=== PATIENT | female | born 1985 | race Caucasian/White ===

== ENCOUNTER 2022-08-16 07:40 | Day surgery (SDC) | payer OTHER ==
[2022-08-12 14:45] VITALS: BMI 34.2
[2022-08-16] MEDS ORDERED: SODIUM CHLORIDE 0.9% 500 ML 500 ML IV ONE (08:03)
[2022-08-16 08:12] VITALS: RESP 16; TEMP 98.3
[2022-08-16] MEDS ORDERED: fentaNYL (PF) 50 MCG/ML 2 ML AMP ONE (08:42)
[2022-08-16] MEDS: BENZOCAINE SPRAY 1 CAN TOPICAL ONE ×2 (08:56→09:08)
[2022-08-16] MEDS ORDERED: fentaNYL (PF) 50 MCG/ML 2 ML AMP IV ONE (09:08)
[2022-08-16] MEDS: MIDAZOLAM 2 MG/2 ML VIAL IV ONE ×2 (09:08→09:11)
[2022-08-16 12:39] VITALS: BP 133/58; PULSE 72
--- NOTE | 2022-08-16 23:05 | ECHOT ---
TRANSESOPHAGEAL ECHOCARDIOGRAM INDICATION: Subaortic membrane. PROCEDURE NOTE: After obtaining informed consent, transesophageal echocardiogram was performed in left lateral position using an Omniplane probe. Local and IV sedation were obtained using 2 mg of Versed and 25 mcg of fentanyl. The patient tolerated the procedure well without any obvious immediate complications. Total sedation time was 10 minutes. FINDINGS: 1. There is a subaortic membrane noted within the left ventricular outflow tract without any evidence of regurgitation. Aortic valve appears normal. There is no evidence of aortic stenosis or regurgitation. 2. Aortic root measures normally. Left atrium has normal size. Left ventricle has normal size and systolic function. Right atrium appears mildly enlarged. Right ventricle appears normal. Color Doppler evaluation showed mild mitral and tricuspid regurgitation. CONCLUSION: Subaortic membrane noted without any evidence of regurgitation. PLAN: The patient will undergo a stress test and follow up with me after that. JALEN / RESHMA: [id number] /
== END 2022-08-16 10:37 | disposition home or self-care (01) ==
LOC: CATHCVL 07:40
PROVIDERS: ATTEND Internal Medicine Cardiovascular Disease
DX: Q24.4 Congenital subaortic stenosis (principal); I08.1 Rheumatic disorders of both mitral and tricuspid valves; I10 Essential (primary) hypertension; F41.9 Anxiety disorder, unspecified; F32.A Depression, unspecified; Z82.49 Family history of ischemic heart disease and other diseases of the circulatory system; F17.210 Nicotine dependence, cigarettes, uncomplicated; Z88.0 Allergy status to penicillin; Z88.8 Allergy status to other drugs, medicaments and biological substances; Z79.899 Other long term (current) drug therapy
CPT/HCPCS: 93312; 93320; 93325; 99152; 81025; J2250; J3010

== ENCOUNTER 2022-08-23 20:00 | Inpatient (IN) | payer OTHER, MEDICAID ==
--- NOTE | 2022-08-23 20:21 | ED ---
Overdose HPI - General Source: patient, EMS, RN notes reviewed Mode of arrival: EMS - History of Present Illness MD Complaint: intentional overdose <Robin Bhandari - Last Filed: 08/23/22 20:46> <Robin Beth - Last Filed: 08/23/22 21:39> <Mohamud Wood - Last Filed: 08/24/22 16:40> - General Chief Complaint: Overdose Stated Complaint: Overdose Time Seen by Provider: 08/23/22 20:00 - History of Present Illness Initial Comments: 37-year-old female with a benign past medical history who apparently took multiple medications tonight including alcohol. She per report was unresponsive was given nasal Narcan after which she woke up over the lining cleaner states they could not find a narcotic that she took. Patient arrives awake alert oriented 4 somewhat evasive with questioning why she did what she did this evening. She denies any fevers chills nausea vomiting sweats. No other current complaints or modifying factors (Robin Bhandari) - Related Data Home Medications Medication Instructions Recorded Confirmed FLUoxetine HCL 20 mg PO DAILY 08/12/22 08/23/22 Metoprolol Tartrate 25 mg PO BID 08/12/22 08/23/22 Mirtazapine 30 mg PO HS 08/12/22 08/23/22 busPIRone HCL 15 mg PO BID 08/12/22 08/23/22 hydrOXYzine pamoate [Vistaril] 25 mg PO BID 08/23/22 08/23/22 Allergies Allergy/AdvReac Type Severity Reaction Status Date / Time amoxicillin Allergy Anaphylaxis Verified 08/23/22 21:32 Penicillins Allergy Anaphylaxis Verified 08/23/22 21:32 Review of Systems ROS Other: All systems not noted in ROS Statement are negative. <Robin Bhandari - Last Filed: 08/23/22 20:46> ROS Other: All systems not noted in ROS Statement are negative. <Robin Beth - Last Filed: 08/23/22 21:39> ROS Other: All systems not noted in ROS Statement are negative. <Mohamud Wood - Last Filed: 08/24/22 16:40> ROS Statement: Those systems with pertinent positive or pertinent negative responses have been documented in the HPI. Past Medical History Past Medical History: No Reported History Additional Past Medical History / Comment(s): Heart Murmur. History of Any Multi-Drug Resistant Organisms: None Reported Past Surgical History: Section Additional Past Surgical History / Comment(s): Section X5. Past Anesthesia/Blood Transfusion Reactions: No Reported Reaction Past Psychological History: Anxiety Smoking Status: Vaper Past Alcohol Use History: Abuse Past Drug Use History: None Reported - Past Family History Mother Family Medical History: No Reported History <Robin Bhandari Filed: 08/23/22 20:46> General Exam General appearance: alert, in no apparent distress Head exam: Present: atraumatic, normocephalic, normal inspection Eye exam: Present: normal appearance, PERRL, EOMI. Absent: scleral icterus, conjunctival injection, periorbital swelling ENT exam: Present: normal exam, mucous membranes moist Neck exam: Present: normal inspection, full ROM, other (No Tuesday or bruits). Absent: tenderness, meningismus, lymphadenopathy Respiratory exam: Present: normal lung sounds bilaterally. Absent: respiratory distress, wheezes, rales, rhonchi, stridor Cardiovascular Exam: Present: regular rate, normal rhythm, normal heart sounds. Absent: systolic murmur, diastolic murmur, rubs, gallop, clicks GI/Abdominal exam: Present: soft, normal bowel sounds. Absent: distended, tenderness, guarding, rebound, rigid Extremities exam: Present: normal inspection, full ROM, normal capillary refill. Absent: tenderness, pedal edema, joint swelling, calf tenderness Back exam: Present: normal inspection Neurological exam: Present: alert, oriented X3, CN II-XII intact Psychiatric exam: Present: flat affect Skin exam: Present: warm, dry, intact, normal color. Absent: rash <Robin Bhandari Filed: 08/23/22 20:46> General appearance: alert, in no apparent distress Head exam: Present: atraumatic, normocephalic, normal inspection Eye exam: Present: normal appearance, PERRL, EOMI. Absent: scleral icterus, conjunctival injection, periorbital swelling ENT exam: Present: normal exam, mucous membranes moist Neck exam: Present: normal inspection. Absent: tenderness, meningismus, lymphadenopathy Respiratory exam: Present: normal lung sounds bilaterally. Absent: respiratory distress, wheezes, rales, rhonchi, stridor Cardiovascular Exam: Present: regular rate, normal rhythm, normal heart sounds. Absent: systolic murmur, diastolic murmur, rubs, gallop, clicks GI/Abdominal exam: Present: soft, normal bowel sounds. Absent: distended, tenderness, guarding, rebound, rigid Extremities exam: Present: normal inspection, full ROM, normal capillary refill. Absent: tenderness, pedal edema, joint swelling, calf tenderness Back exam: Present: normal inspection Neurological exam: Present: alert, oriented X3, CN II-XII intact Psychiatric exam: Present: normal affect, normal mood Skin exam: Present: warm, dry, intact, normal color. Absent: rash <Mohamud Wood - Last Filed: 08/24/22 16:40> - General Exam Comments Initial Comments: This is a well up well-nourished awake alert oriented 4 female (Robin Bhandari) Course <Robin Bhandari - Last Filed: 08/23/22 20:46> <Robin Beth - Last Filed: 08/23/22 21:39> Vital Signs 08/23/22 20:03 Temperature 97.6 F Pulse Rate 70 Respiratory 18 Rate Blood Pressure 146/98 O2 Sat by Pulse 99 Oximetry - Reevaluation(s) Reevaluation #1: 08/23/22 20:46 The patient will be endorsed to Dr. Beth at our shift change at 9 PM (Rboin Bhandari) Reevaluation #2: 08/23/22 21:39 EKG sinus rhythm rate of 72, MO interval 164, QRS duration 92, QTC 433, no ST segment elevation. (Robin Beth) Medical Decision Making <Robin Bhandari - Last Filed: 08/23/22 20:46> - Lab Data Result diagrams: 08/23/22 20:56 <Robin Beth - Last Filed: 08/23/22 21:39> - Lab Data Result diagrams: 08/23/22 20:56 08/23/22 20:56 <Mohamud Wood - Last Filed: 08/24/22 16:40> - Medical Decision Making Was pt. sent in by a medical professional or institution (, PA, MACHINE DESIGNER, urgent care, hospital, or fci...) When possible be specific @ -[No] Did you speak to anyone other than the patient for history (EMS, parent, family, police, friend...)? What history was obtained from this source @ -[Paramedics upon arrival] Did you review nursing and triage notes (agree or disagree)? Why? @ -[I reviewed and agree with nursing and triage notes] Were old charts reviewed (outside hosp., previous admission, EMS record, old EKG, old radiological studies, urgent care reports/EKG's, fci records)? Report findings @ -[No old charts were reviewed] Differential Diagnosis (chest pain, altered mental status, abdominal pain women, abdominal pain men, vaginal bleeding, weakness, fever, dyspnea, syncope, headache, dizziness, GI bleed, back pain, seizure, CVA, palpatations, mental health, musculoskeletal)? @ -[Multiple drug overdose, alcohol ingestion] EKG interpreted by me (3pts min.). @ -[As above] X-rays interpreted by me (1pt min.). @ -[None done] CT interpreted by me (1pt min.). @ -[None done] U/S interpreted by me (1pt. min.). @ -[None done] What testing was considered but not performed or refused? (CT, X-rays, U/S, labs)? Why? @ -[None] What meds were considered but not given or refused? Why? @ -[None] Did you discuss the management of the patient with other professionals ([place]. , PA, MACHINE DESIGNER, lab, RT, psych nurse, social work supervisor, steam room attendant, teacher, disability insurance hearing officer, caseworker)? Give summary @ -[No] Was smoking cessation discussed for >3mins.? @ -[No] Was critical care preformed (if so, how long)? @ -[No] Were there social determinants of health that impacted care today? How? (Homelessness, low income, unemployed, alcoholism, drug addiction, transport ation, low edu. Level, literacy, decrease access to med. care, retirement, rehab)? @ -[No] Was there de-escalation of care discussed even if they declined (Discuss DNR or withdrawal of care, Hospice)? DNR status @ -[No] What co-morbidities impacted this encounter? (DM, HTN, Smoking, COPD, CAD, Cancer, CVA, ARF, Chemo, Hep., AIDS, mental health diagnosis, sleep apnea, morbid obesity)? @ -[None] Was patient admitted / discharged? Hospital course, mention meds given and route, prescriptions, significant lab abnormalities, going to OR and other pertinent info. @ -[hospital course] Undiagnosed new problem with uncertain prognosis? @ -[No] Drug Therapy requiring intensive monitoring for toxicity (Heparin, Nitro, Insulin, Cardizem)? @ -[No] Were any procedures done? @ -[No] Diagnosis/symptom? @ -[default] Acute, or Chronic, or Acute on Chronic? @ -[default] Uncomplicated (without systemic symptoms) or Complicated (systemic symptoms)? @ -[default] Side effects of treatment? @ -[No] Exacerbation, Progression, or Severe Exacerbation? @ -[No] Poses a threat to life or bodily function? How? (Chest pain, [place], [place], pneumonia, PE, COPD, DKA, ARF, appy, cholecystitis, CVA, Diverticulitis, Homicidal, Suicidal, threat to staff... and all critical care pts) @ -[No] (Robin Bhandari) 37 female medical clear for psychiatric evaluation seen and evaluated by psychiatry here in the ER and will be admitted for psychiatric evaluation and treatment (Mohamud Wood) - Lab Data Lab Results 08/23/22 08/23/22 08/23/22 Range/Units 20:56 20:56 20:56 WBC 8.5 (3.8-10.6) k/uL RBC 3.88 (3.80-5.40) m/uL Hgb 12.6 (11.4-16.0) gm/dL Hct 36.8 (34.0-46.0) % MCV 95.0 (80.0-100.0) fL MCH 32.6 (25.0-35.0) pg MCHC 34.3 (31.0-37.0) g/dL RDW 12.6 (11.5-15.5) % Plt Count 251 (150-450) k/uL MPV 10.3 Neutrophils % 49 % Lymphocytes % 40 % Monocytes % 4 % Eosinophils % 2 % Basophils % 0 % Neutrophils # 4.2 (1.3-7.7) k/uL Lymphocytes # 3.4 (1.0-4.8) k/uL Monocytes # 0.3 (0-1.0) k/uL Eosinophils # 0.2 (0-0.7) k/uL Basophils # 0.0 (0-0.2) k/uL PT 10.6 (9.0-12.0) sec INR 1.0 (<1.2) Sodium 141 (137-145) mmol/L Potassium 4.2 (3.5-5.1) mmol/L Chloride 108 H (98-107) mmol/L Carbon Dioxide 21 L (22-30) mmol/L Anion Gap 12 mmol/L BUN 7 (7-17) mg/dL Creatinine 0.42 L (0.52-1.04) mg/dL Est GFR (CKD-EPI)AfAm >90 (>60 ml/min/1.73 sqM) Est GFR (CKD-EPI)NonAf >90 (>60 ml/min/1.73 sqM) Glucose 119 H (74-99) mg/dL Plasma Lactic Acid Syed (0.7-2.0) mmol/L Calcium 9.0 (8.4-10.2) mg/dL Total Bilirubin 0.3 (0.2-1.3) mg/dL AST 40 H (14-36) U/L ALT 33 (4-34) U/L Alkaline Phosphatase 102 (38-126) U/L Creatine Kinase 105 (30-135) U/L Total Protein 8.4 H (6.3-8.2) g/dL Albumin 4.6 (3.5-5.0) g/dL Lipase 127 (23-300) U/L Urine HCG, Qual (Not Detectd) Salicylates <1.0 mg/dL Urine Opiates Screen (NotDetected) Ur Oxycodone Screen (NotDetected) Urine Methadone Screen (NotDetected) Ur Propoxyphene Screen (NotDetected) Acetaminophen <10.0 ug/mL Ur Barbiturates Screen (NotDetected) U Tricyclic Antidepress (NotDetected) Ur Phencyclidine Scrn (NotDetected) Ur Amphetamines Screen (NotDetected) U Methamphetamines Scrn (NotDetected) U Benzodiazepines Scrn (NotDetected) Urine Cocaine Screen (NotDetected) U Marijuana (THC) Screen (NotDetected) Serum Alcohol 249 H* mg/dL Coronavirus (PCR) (Not Detectd) 08/23/22 08/24/22 08/24/22 Range/Units 20:56 09:42 09:42 WBC (3.8-10.6) k/uL RBC (3.80-5.40) m/uL Hgb (11.4-16.0) gm/dL Hct (34.0-46.0) % MCV (80.0-100.0) fL MCH (25.0-35.0) pg MCHC (31.0-37.0) g/dL RDW (11.5-15.5) % Plt Count (150-450) k/uL MPV Neutrophils % % Lymphocytes % % Monocytes % % Eosinophils % % Basophils % % Neutrophils # (1.3-7.7) k/uL Lymphocytes # (1.0-4.8) k/uL Monocytes # (0-1.0) k/uL Eosinophils # (0-0.7) k/uL Basophils # (0-0.2) k/uL PT (9.0-12.0) sec INR (<1.2) Sodium (137-145) mmol/L Potassium (3.5-5.1) mmol/L Chloride (98-107) mmol/L Carbon Dioxide (22-30) mmol/L Anion Gap mmol/L BUN (7-17) mg/dL Creatinine (0.52-1.04) mg/dL Est GFR (CKD-EPI)AfAm (>60 ml/min/1.73 sqM) Est GFR (CKD-EPI)NonAf (>60 ml/min/1.73 sqM) Glucose (74-99) mg/dL Plasma Lactic Acid Syed 1.3 (0.7-2.0) mmol/L Calcium (8.4-10.2) mg/dL Total Bilirubin (0.2-1.3) mg/dL AST (14-36) U/L ALT (4-34) U/L Alkaline Phosphatase (38-126) U/L Creatine Kinase (30-135) U/L Total Protein (6.3-8.2) g/dL Albumin (3.5-5.0) g/dL Lipase (23-300) U/L Urine HCG, Qual Not Detected (Not Detectd) Salicylates mg/dL Urine Opiates Screen Not Detected (NotDetected) Ur Oxycodone Screen Not Detected (NotDetected) Urine Methadone Screen Not Detected (NotDetected) Ur Propoxyphene Screen Not Detected (NotDetected) Acetaminophen ug/mL Ur Barbiturates Screen Not Detected (NotDetected) U Tricyclic Antidepress Not Detected (NotDetected) Ur Phencyclidine Scrn Not Detected (NotDetected) Ur Amphetamines Screen Not Detected (NotDetected) U Methamphetamines Scrn Detected H (NotDetected) U Benzodiazepines Scrn Detected H (NotDetected) Urine Cocaine Screen Not Detected (NotDetected) U Marijuana (THC) Screen Not Detected (NotDetected) Serum Alcohol mg/dL Coronavirus (PCR) (Not Detectd) 08/24/22 Range/Units 13:07 WBC (3.8-10.6) k/uL RBC (3.80-5.40) m/uL Hgb (11.4-16.0) gm/dL Hct (34.0-46.0) % MCV (80.0-100.0) fL MCH (25.0-35.0) pg MCHC (31.0-37.0) g/dL RDW (11.5-15.5) % Plt Count (150-450) k/uL MPV Neutrophils % % Lymphocytes % % Monocytes % % Eosinophils % % Basophils % % Neutrophils # (1.3-7.7) k/uL Lymphocytes # (1.0-4.8) k/uL Monocytes # (0-1.0) k/uL Eosinophils # (0-0.7) k/uL Basophils # (0-0.2) k/uL PT (9.0-12.0) sec INR (<1.2) Sodium (137-145) mmol/L Potassium (3.5-5.1) mmol/L Chloride (98-107) mmol/L Carbon Dioxide (22-30) mmol/L Anion Gap mmol/L BUN (7-17) mg/dL Creatinine (0.52-1.04) mg/dL Est GFR (CKD-EPI)AfAm (>60 ml/min/1.73 sqM) Est GFR (CKD-EPI)NonAf (>60 ml/min/1.73 sqM) Glucose (74-99) mg/dL Plasma Lactic Acid Syed (0.7-2.0) mmol/L Calcium (8.4-10.2) mg/dL Total Bilirubin (0.2-1.3) mg/dL AST (14-36) U/L ALT (4-34) U/L Alkaline Phosphatase (38-126) U/L Creatine Kinase (30-135) U/L Total Protein (6.3-8.2) g/dL Albumin (3.5-5.0) g/dL Lipase (23-300) U/L Urine HCG, Qual (Not Detectd) Salicylates mg/dL Urine Opiates Screen (NotDetected) Ur Oxycodone Screen (NotDetected) Urine Methadone Screen (NotDetected) Ur Propoxyphene Screen (NotDetected) Acetaminophen ug/mL Ur Barbiturates Screen (NotDetected) U Tricyclic Antidepress (NotDetected) Ur Phencyclidine Scrn (NotDetected) Ur Amphetamines Screen (NotDetected) U Methamphetamines Scrn (NotDetected) U Benzodiazepines Scrn (NotDetected) Urine Cocaine Screen (NotDetected) U Marijuana (THC) Screen (NotDetected) Serum Alcohol mg/dL Coronavirus (PCR) Not Detected (Not Detectd) Disposition <Robin Bhandari - Last Filed: 08/23/22 20:46> <Robin Beth - Last Filed: 08/23/22 21:39> Is patient prescribed a controlled substance at d/c from ED?: No <Mohamud Wood - Last Filed: 08/24/22 16:40> Clinical Impression: Accidental drug overdose, Drug overdose, Depression Disposition: TRANSFER TO PSYCH HOSP/UNIT Condition: Fair
--- NOTE | 2022-08-23 20:55 | XR ---
EXAMINATION TYPE: XR chest 2V DATE OF EXAM: 08/23/2022 COMPARISON: NONE HISTORY: Overdose TECHNIQUE: Frontal and lateral views of the chest are obtained. FINDINGS: Increased density right medial lung base may reflect vascular crowding. Aspiration is difficult to ex clude. The remainder of the lungs are clear. No evidence for pneumothorax. No pleural effusion. The cardiac silhouette size is within normal limits. The osseous structures are grossly intact. IMPRESSION: 1. Increased density right medial lung base may reflect vascular crowding. Aspiration is difficult t o exclude.
--- NOTE | 2022-08-23 20:56 | XR ---
EXAMINATION TYPE: XR KUB DATE OF EXAM: 08/23/2022 COMPARISON: NONE HISTORY: Pain TECHNIQUE: Single supine KUB image of the abdomen is obtained FINDINGS: Small bowel demonstrates no evidence for dilatation or air fluid levels. Gas and fecal material is seen in non-distended colon. No convincing evidence for pneumoperitoneum. No unusual calcifications. The lung bases are clear. The osseous structures are intact. IMPRESSION: 1. Overall nonobstructive bowel gas pattern.
[2022-08-23 21:20] LABS: Basophils % (A) 0 %; Eosinophils # (A) 0.2 k/uL (0-0.7); Eosinophils % (A) 2 %; HCT 36.8 % (34.0-46.0); HGB 12.6 gm/dL (11.4-16.0); Lymphocytes # (A) 3.4 k/uL (1.0-4.8); Lymphocytes % (A) 40 %; MCH 32.6 pg (25.0-35.0); MCHC 34.3 g/dL (31.0-37.0); Mean Platelet Volume 10.3; Monocytes # (A) 0.3 k/uL (0-1.0); Monocytes % (A) 4 %; Neutrophils # (A) 4.2 k/uL (1.3-7.7); Neutrophils % (A) 49 %; Platelet Count 251 k/uL (150-450); RBC 3.88 m/uL (3.80-5.40); RDW 12.6 % (11.5-15.5); WBC 8.5 k/uL (3.8-10.6)
[2022-08-23 21:33] LABS: Prothrombin Time 10.6 sec (9.0-12.0)
[2022-08-23 21:36] LABS: ALT 33 U/L (4-34); AST 40 U/L (14-36); Acetaminophen <10.0 ug/mL; African American GFR (CKD) >90 (>60 ml/min/1.73 sqM); Albumin 4.6 g/dL (3.5-5.0); Alkaline Phosphatase 102 U/L (38-126); Anion Gap 12 mmol/L; Blood Urea Nitrogen 7 mg/dL (7-17); Carbon Dioxide 21 mmol/L (22-30); Chloride 108 mmol/L (98-107); Creatine Kinase 105 U/L (30-135); Glucose 119 mg/dL (74-99); Lipase 127 U/L (23-300); Non-African American GFR(CKD) >90 (>60 ml/min/1.73 sqM); Potassium 4.2 mmol/L (3.5-5.1); Salicylate <1.0 mg/dL; Sodium 141 mmol/L (137-145); Total Bilirubin 0.3 mg/dL (0.2-1.3); Total Protein 8.4 g/dL (6.3-8.2)
[2022-08-23 21:57] LABS: Alcohol 249 mg/dL
[2022-08-24 11:08] LABS: Amphetamine Screen,Urine Not Detected (NotDetected); Barbiturate Screen,Urine Not Detected (NotDetected); Benzodiazepines Screen,Urine Detected (NotDetected); Cocaine Screen,Urine Not Detected (NotDetected); Methadone Screen, Urine Not Detected (NotDetected); Opiate Screen,Urine Not Detected (NotDetected); Oxycodone Screen, Urine Not Detected (NotDetected); Phencyclidine Screen,Urine Not Detected (NotDetected); Tricyclic Antidepressant,Urine Not Detected (NotDetected); Urn Cannabinoid Scrn Not Detected (NotDetected)
[2022-08-24] MEDS ORDERED: MAGNESIUM HYDROXIDE 2,400 MG/10 ML CUP PO PRN (16:21)
[2022-08-24] MEDS ORDERED: HALOPERIDOL LACTATE 5 MG/ML 1 ML VIAL IM PRN (16:21)
[2022-08-24] MEDS ORDERED: ACETAMINOPHEN TAB 325 MG TAB PO PRN (16:21)
[2022-08-24] MEDS ORDERED: MAG HYDROX/AL HYDROX/SIMETH 30 ML CUP PO PRN (16:21)
[2022-08-24] MEDS ORDERED: haloperidoL 5 MG TAB PO PRN (16:24)
[2022-08-24] MEDS ORDERED: LORazepam 2 MG/ML INJ IM PRN (16:24)
[2022-08-24] MEDS: METOPROLOL TARTRATE 25 MG TAB PO SCH (20:15)
[2022-08-24] MEDS: LORazepam 1 MG TAB PO PRN (20:16)
[2022-08-24] MEDS: traZODone HCL 100 MG TAB PO PRN (22:24)
[2022-08-25] MEDS: FLUoxetine HCL 20 MG CAP PO SCH (08:46)
[2022-08-25] MEDS: METOPROLOL TARTRATE 25 MG TAB PO SCH ×2 (08:46→20:11)
[2022-08-25] MEDS: LORazepam 1 MG TAB PO PRN ×3 (08:47→22:01)
--- NOTE | 2022-08-25 08:49 | P.HP ---
Psychiatric H&P - . H&P Date: 08/25/22 History & Physical: Allergies Allergy/AdvReac Type Severity Reaction Status Date / Time amoxicillin Allergy Anaphylaxis Verified 08/24/22 18:29 Penicillins Allergy Anaphylaxis Verified 08/24/22 18:29 Vital Signs Temp 97.7 F 08/25/22 06:26 Pulse 61 08/25/22 06:26 Resp 14 08/25/22 06:26 BP 119/61 08/25/22 06:26 Pulse Ox 98 08/24/22 17:50 FiO2 Intake & Output 08/24/22 08/25/22 08/25/22 18:59 06:59 18:59 Weight 83.007 kg Laboratory Last Values WBC 8.5 k/uL (3.8-10.6) 08/23/22 20:56 RBC 3.88 m/uL (3.80-5.40) 08/23/22 20:56 Hgb 12.6 gm/dL (11.4-16.0) 08/23/22 20:56 Hct 36.8 % (34.0-46.0) 08/23/22 20:56 MCV 95.0 fL (80.0-100.0) 08/23/22 20:56 MCH 32.6 pg (25.0-35.0) 08/23/22 20:56 MCHC 34.3 g/dL (31.0-37.0) 08/23/22 20:56 RDW 12.6 % (11.5-15.5) 08/23/22 20:56 Plt Count 251 k/uL (150-450) 08/23/22 20:56 MPV 10.3 08/23/22 20:56 Neutrophils % 49 % 08/23/22 20:56 Lymphocytes % 40 % 08/23/22 20:56 Monocytes % 4 % 08/23/22 20:56 Eosinophils % 2 % 08/23/22 20:56 Basophils % 0 % 08/23/22 20:56 Neutrophils # 4.2 k/uL (1.3-7.7) 08/23/22 20:56 Lymphocytes # 3.4 k/uL (1.0-4.8) 08/23/22 20:56 Monocytes # 0.3 k/uL (0-1.0) 08/23/22 20:56 Eosinophils # 0.2 k/uL (0-0.7) 08/23/22 20:56 Basophils # 0.0 k/uL (0-0.2) 08/23/22 20:56 PT 10.6 sec (9.0-12.0) 08/23/22 20:56 INR 1.0 (<1.2) 08/23/22 20:56 Sodium 141 mmol/L (137-145) 08/23/22 20:56 Potassium 4.2 mmol/L (3.5-5.1) 08/23/22 20:56 Chloride 108 mmol/L (98-107) H 08/23/22 20:56 Carbon Dioxide 21 mmol/L (22-30) L 08/23/22 20:56 Anion Gap 12 mmol/L 08/23/22 20:56 BUN 7 mg/dL (7-17) 08/23/22 20:56 Creatinine 0.42 mg/dL (0.52-1.04) L 08/23/22 20:56 Est GFR (CKD-EPI)AfAm >90 (>60 ml/min/1.73 sqM) 08/23/22 20:56 Est GFR (CKD-EPI)NonAf >90 (>60 ml/min/1.73 sqM) 08/23/22 20:56 Glucose 119 mg/dL (74-99) H 08/23/22 20:56 Plasma Lactic Acid Syed 1.3 mmol/L (0.7-2.0) 08/23/22 20:56 Calcium 9.0 mg/dL (8.4-10.2) 08/23/22 20:56 Total Bilirubin 0.3 mg/dL (0.2-1.3) 08/23/22 20:56 AST 40 U/L (14-36) H 08/23/22 20:56 ALT 33 U/L (4-34) 08/23/22 20:56 Alkaline Phosphatase 102 U/L (38-126) 08/23/22 20:56 Creatine Kinase 105 U/L (30-135) 08/23/22 20:56 Total Protein 8.4 g/dL (6.3-8.2) H 08/23/22 20:56 Albumin 4.6 g/dL (3.5-5.0) 08/23/22 20:56 Lipase 127 U/L (23-300) 08/23/22 20:56 Urine HCG, Qual Not Detected (Not Detectd) 08/24/22 09:42 Salicylates <1.0 mg/dL 08/23/22 20:56 Urine Opiates Screen Not Detected (NotDetected) 08/24/22 09:42 Ur Oxycodone Screen Not Detected (NotDetected) 08/24/22 09:42 Urine Methadone Screen Not Detected (NotDetected) 08/24/22 09:42 Ur Propoxyphene Screen Not Detected (NotDetected) 08/24/22 09:42 Acetaminophen <10.0 ug/mL 08/23/22 20:56 Ur Barbiturates Screen Not Detected (NotDetected) 08/24/22 09:42 U Tricyclic Antidepress Not Detected (NotDetected) 08/24/22 09:42 Ur Phencyclidine Scrn Not Detected (NotDetected) 08/24/22 09:42 Ur Amphetamines Screen Not Detected (NotDetected) 08/24/22 09:42 U Methamphetamines Scrn Detected (NotDetected) H 08/24/22 09:42 U Benzodiazepines Scrn Detected (NotDetected) H 08/24/22 09:42 Urine Cocaine Screen Not Detected (NotDetected) 08/24/22 09:42 U Marijuana (THC) Screen Not Detected (NotDetected) 08/24/22 09:42 Serum Alcohol 249 mg/dL H* 08/23/22 20:56 Coronavirus (PCR) Not Detected (Not Detectd) 08/24/22 13:07 08/25/22 08:32 Identification: Corinne Guillen is a 37 years old female living in [facility] [place]. She was admitted to [facility] on 08-24-22 on voluntary basis since she had overdosed on her medications of metoprolol Prozac and BuSpar. History of present illness: When asked for the reasons for coming here she said she ended up taking more medicine than she was prescribed to get a reaction from her . She said her gets upset with her if she drinks and kicks her out of house. Since she was drinking she thought she could get away with that but instead of that she ended up in the hospital. She said she was drinking 6 cans of beer 24 ounces each her blood alcohol level was 249. Her UDS was positive for methamphetamine and benzodiazepines. But she insists that she does not abuse meth or benzos. Once her came to know about her overdosing he called the ambulance and she was brought here. She said she has been on Prozac for a month for depression and has been taking BuSpar since October 2021 for anxiety which was not helping her. But she said she started to feel better once she went on Prozac. She said her anxiety has been there for all of her life she said it comes here and there spontaneously lasting from about 2 hours to 2 days. During these attacks she gets impatient not able to concentrate and cannot complete her task. However as noted earlier she started to feel better only after taking Prozac. She denies hallucinations mood swings and any other mental health symptoms. Previous psychiatric history/alcohol and drug abuse. She was never in a psychiatric hospital or seeing a mental health professional. She has been seeing her family doctor who has been prescribing all these medications. She said she started to drink alcohol since age 13 or 14 and has been drinking heavily for the last 7-8 years. She said she had about 12 blackout periods every year she had 1 DUI. She went through 2 rehabs. She insists that she does not abuse any drug other than alcohol she does not know how her UDS is positive for benzo and methamphetamine Social history: She quit school in her senior year since she got she was living with her current at that time and has been living with him for 19 years but is legally only for 16 years. 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 She was raised well by her parents and was not abused she is Judaism by adventism and goes to orthodox here and there. She denies any pending legal issues. Previous medical history: She has hypertension and is ALLERGIC to penicillins and amoxicillin. She has 5 living children and had 2 spontaneous abortions she had 5 C-sections. Her last menstrual period ended yesterday and it is regular Family history: She said her father is an alcoholic and denies any other physical or mental health issues in the family Mental status examination: This is a female with good hygiene. She is polite friendly cheerful and cooperative. She does not show any psychomotor agitation or retardation. Her speech is spontaneous relevant and goal-directed. Mood is cheerful and affect is appropriate to the thought content. She denies hallucinations, delusional thinking, suicidal and homicidal thoughts. She is well oriented and is able to name the last 4 presidents. She is able to spell house both forwards and backwards correctly. Strengths: Has a place to live and has supportive family. Weakness: Abuses alcohol. Appears to be manipulative with her . Poor coping skills. 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 Personality disorder unspecified. Treatment plan: She will have physical examination and psychosocial evaluation. She will receive milieu therapy group therapy individual therapy occupational therapy and recreational therapy including alcohol counseling. She will receive mood Ativan to prevent withdrawal symptoms on a when necessary basis. I will continue her Prozac and when necessary trazodone has ordered. Discharge with outpatient follow-up.
[2022-08-25] MEDS: traZODone HCL 100 MG TAB PO PRN (22:01)
[2022-08-26 06:42] VITALS: BP 129/78; PULSE 72; RESP 18; TEMP 97.9
[2022-08-26] MEDS: METOPROLOL TARTRATE 25 MG TAB PO SCH (08:33)
[2022-08-26] MEDS: FLUoxetine HCL 20 MG CAP PO SCH (08:33)
[2022-08-26] MEDS: LORazepam 1 MG TAB PO PRN ×2 (08:35→15:08)
--- NOTE | 2022-08-26 12:14 | P.DS ---
Providers Date of admission: 08/24/22 16:08 Expected date of discharge: 08/26/22 Attending physician: Boo Mckeon MD Consults: 08/24/22 16:21 Consult Physician Routine Consulting Provider: Chris Velazquez Consult Reason/Comments: H&P and medical Do you want consulting provider notified?: Yes Primary care physician: Leanna Mccormick - Discharge Diagnosis(es) (1) Alcohol dependence with alcohol-induced mood disorder Current Visit: Yes Status: Acute Priority: High (2) Alcohol dependence with alcohol-induced mood disorder Current Visit: Yes Status: Acute Priority: High (3) Personality disorder, unspecified Current Visit: Yes Status: Chronic Priority: Medium Hospital Course: Patient had her psychiatric H&P done by sc on 08/25/2022. Her physical examination was done in the emergency room on 08/23/[address] Robin Bhandari. After the psych eval she was continued on her home medications of Prozac and her Remeron was changed to trazodone 100 mg at bedtime by the admitting physician she was given Ativan on a when necessary basis for withdrawal symptoms. Was continued on metoprolol for her hypertension as ordered by the admitting physician. Patient took these medications without any adverse effects and she did not have any withdrawal symptoms. She was attending her groups regularly. she was doing well and felt she is ready to go home and continue with outpatient treatment. This is a female with good hygiene. She is polite and cooperative she does not show any psychomotor agitation or retardation. Her speech is spontaneous relevant and goal-directed. Mood is euthymic and affect is appropriate. She denies hallucinations delusional thinking suicide and homicide thoughts. Her sensorium is clear. She was advised to take her medications as prescribed not to drink alcohol or abuse drugs continue with outpatient counseling regarding alcohol use. She agreed. Assessment: See in the hospital course above Health Concerns: None Pertinent Studies: Not applicable Procedures: None Patient Condition at Discharge: Stable Plan - Discharge Summary New Discharge Prescriptions: New Acetaminophen Tab [Tylenol] 650 mg PO Q4HR PRN tab PRN Reason: Pain/Discomfort traZODone HCL [Desyrel] 100 mg PO HS PRN 30 Days #30 tab PRN Reason: Insomnia Mag Hydrox/Al Hydrox/Simeth [Maalox] 30 ml PO Q4HR PRN ml PRN Reason: Gi Upset Magnesium Hydroxide [Milk of Magnesia Concentrate] 2,400 mg PO DAILY PRN ml PRN Reason: Constipation Continue Metoprolol Tartrate 25 mg PO BID busPIRone HCL 15 mg PO BID 30 Days #60 tab FLUoxetine HCL 20 mg PO DAILY 30 Days #30 cap Discontinued Mirtazapine 30 mg PO HS hydrOXYzine pamoate [Vistaril] 25 mg PO BID Discharge Medication List Metoprolol Tartrate 25 mg PO BID 08/12/22 [History] Acetaminophen Tab [Tylenol] 650 mg PO Q4HR PRN tab 08/26/22 [Rx] FLUoxetine HCL 20 mg PO DAILY 30 Days #30 cap 08/26/22 [Rx] Mag Hydrox/Al Hydrox/Simeth [Maalox] 30 ml PO Q4HR PRN ml 08/26/22 [Rx] Magnesium Hydroxide [Milk of Magnesia Concentrate] 2,400 mg PO DAILY PRN ml 08/26/22 [Rx] busPIRone HCL 15 mg PO BID 30 Days #60 tab 08/26/22 [Rx] traZODone HCL [Desyrel] 100 mg PO HS PRN 30 Days #30 tab 08/26/22 [Rx] Follow up Appointment(s)/Referral(s): Leanna Mccormick DO [Primary Care Provider] - 1-2 days
== END 2022-08-26 17:39 | disposition home or self-care (01) | DRG 897 ==
LOC: EC 20:00 → 3MHU 08-24 16:08
PROVIDERS: ADMIT Psychiatry & Neurology Psychiatry; ATTEND Psychiatry & Neurology Psychiatry
DX: F10.24 Alcohol dependence with alcohol-induced mood disorder (principal); F17.290 Nicotine dependence, other tobacco product, uncomplicated; F60.9 Personality disorder, unspecified; Z20.822 Contact with and (suspected) exposure to COVID-19; Z28.310 Unvaccinated for COVID-19; T44.7X2A Poisoning by beta-adrenoreceptor antagonists, intentional self-harm, initial encounter; T43.222A Poisoning by selective serotonin reuptake inhibitors, intentional self-harm, initial encounter; T43.592A Poisoning by other antipsychotics and neuroleptics, intentional self-harm, initial encounter; Y90.8 Blood alcohol level of 240 mg/100 ml or more; F32.A Depression, unspecified; F41.9 Anxiety disorder, unspecified; I10 Essential (primary) hypertension; Z71.6 Tobacco abuse counseling; Z79.899 Other long term (current) drug therapy; Z71.41 Alcohol abuse counseling and surveillance of alcoholic; Z71.51 Drug abuse counseling and surveillance of drug abuser; Z88.0 Allergy status to penicillin; Y92.009 Unspecified place in unspecified non-institutional (private) residence as the place of occurrence of the external cause; Z63.72 Alcoholism and drug addiction in family; Z81.1 Family history of alcohol abuse and dependence
CPT/HCPCS: 36415; 71046; 74018; 80053; 80143; 80179; 80306; 80320; 81025; 82075; 82550; 83605; 83690; 85025; 85610; 87635; 93005; 99285